=== PATIENT | female | born 1940 | race Caucasian/White ===

== ENCOUNTER 2017-01-03 10:13 | Outpatient (CLI) | payer MEDICARE, OTHER ==
[2017-01-03 10:53] LABS: MEAN CORPUSCULAR HEMOGLOBIN 30.1 pg (28.0-34.0); MEAN CORPUSCULAR VOLUME 93.1 fl (80.0-100.0)
[2017-01-03 11:12] LABS: eGFR (African) 40; eGFR (Non-African) 33
[2017-01-03 11:57] LABS: BASOPHILS % 2 % (0-2); EOSINOPHILS % 3 % (0-7); MONOCYTES % 6 % (0-11); SEGMENTED NEUTROPHILS % 60 % (39-79)
== END 2017-01-03 10:14 ==
LOC: LAB 10:13
PROVIDERS: ATTEND Nurse Practitioner Family
DX: Z90.49 Acquired absence of other specified parts of digestive tract (principal); D64.9 Anemia, unspecified
CPT/HCPCS: 36415; 80053; 85025

== ENCOUNTER 2018-08-25 10:09 | Outpatient (CLI) | payer MEDICARE, OTHER ==
--- NOTE | 2018-08-25 13:53 | Diagnostic Imaging Report ---
JANE GUTIERREZ [facility] [address] [facility] [address] [address] Report Submission Date: Aug 25, 2018 12:30:42 PM SAFETY DEPOSIT BOXES CUSTODIAN Patient Study Name: RASHIDA ANTHONY Date: Aug 25, 2018 10:16:23 AM SAFETY DEPOSIT BOXES CUSTODIAN Modality Type: DX Gender: F Description: L SPINE 4 VIEWS : 38 Institution: [facility] Physician: JANE GUTIERREZ Exam: Lumbar spine. History: Fall 3 days ago. AP, lateral oblique views of the lumbar spine are submitted. 5 functional lumbar vertebra are identified. Diffuse osteopenia is noted. The vertebral body heights are adequately maintained. Mild spondylolisthesis of L4 and L5 is noted. Mild degenerative disc disease at L4-5 level is noted. Spondylolysis bilaterally at L5 level is noted.. Pedicles are intact. Impression: Grade 1 spondylolisthesis of L4 on L5. Spondylolysis at L5 is noted. Degenerative disc disease most marked at L4-5 level. Electronically signed on Aug 25, 2018 12:30:42 PM SAFETY DEPOSIT BOXES CUSTODIAN by: Amador HERNANDEZ
--- NOTE | 2018-08-25 13:53 | Diagnostic Imaging Report ---
JANE GUTIERREZ [facility] [address] [facility].[address] [address] Report Submission Date: Aug 25, 2018 12:47:09 PM CHILD SUPPORT CASE OFFICER Patient Study Name: RASHIDA ANTHONY Date: Aug 25, 2018 10:16:23 AM CHILD SUPPORT CASE OFFICER Modality Type: DX Gender: F Description: KNEE 3 VIEWS : 38 Institution: [facility] Physician: JANE GUTIERREZ Exam: Right knee. History: Fall 3 days ago. AP, lateral and sunrise view the right knee are submitted. Diffuse osteopenia is noted. No acute fracture or dislocation is seen. Chondrocalcinosis in both the lateral medial compartments of the knee joint are noted. No other soft tissue abnormalities are identified. Impression: Diffuse osteoporosis. No acute fracture. 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 Electronically signed on Aug 25, 2018 12:47:09 PM CHILD SUPPORT CASE OFFICER by: Amador HERNANDEZ
== END 2018-08-25 10:10 ==
LOC: RAD 10:09
PROVIDERS: ATTEND Nurse Practitioner Family
DX: M43.16 Spondylolisthesis, lumbar region (principal); M51.36 Other intervertebral disc degeneration, lumbar region; M85.861 Other specified disorders of bone density and structure, right lower leg; S89.91XA Unspecified injury of right lower leg, initial encounter; S39.92XA Unspecified injury of lower back, initial encounter
CPT/HCPCS: 72110; 73562

== ENCOUNTER 2019-05-16 09:43 | Emergency (ER) | payer MEDICARE, OTHER ==
--- NOTE | 2019-05-16 10:03 | Diagnostic Imaging Report ---
PATIENT MR#: [id number] PATIENT PATIENT NAME: RASHIDA ANTHONY DATE OF : 1940 REFERRING PHYSICIAN: GIOVANNY LOPEZ EXAM DATE: 05/16/2019 ACCESSION NUMBER: [id number] EXAM DESCRIPTION: CT BRAIN W/O CONTRAST HISTORY: 78-year-old female with aphasia. COMPARISON: None available. TECHNIQUE: Noncontrast axial CT images of the head were performed. Sagittal and coronal reformatted images were obtained. FINDINGS: There is mild global brain atrophy. There is mild to moderate decreased attenuation in the periventricular white matter. No intracranial hemorrhage, mass, midline shift, hydrocephalus, or evidence of acute l arge vessel infarct. The mastoid air cells, middle ear spaces, and partially visualized paranasal sinuses are cl ear. IMPRESSION: Global brain atrophy and chronic ischemic changes, without evidence of acute infarct or other acute i ntracranial process. These findings were discussed with Dr. Lopez in the emergency room on 05/16/2019 at 09:57 a.m. RESIDENTIAL ROOFER . Read by: Dr. Delfino Driver Transcribed by: Transcribed Date: Electronically signed by: Dr. Delfino Driver Date signed: 05/16/2019 10:02:17 AM
[2019-05-16 10:07] LABS: BASOPHILS % 0.3 % (0.0-1.5); NEUTROPHILS # 3.7 # k/uL (1.4-7.7)
[2019-05-16] MEDS ORDERED: diphenhydrAMINE HCL 50 MG/ML VIAL ONE (10:09)
[2019-05-16] MEDS ORDERED: methylPREDNISolone SOD SUCC 125 MG/2 ML VIAL ONE (10:09)
[2019-05-16] MEDS ORDERED: LABETALOL HCL 20 MG/4 ML SYRINGE IV ONE ×2 (10:10→10:12)
[2019-05-16] MEDS ORDERED: diphenhydrAMINE HCL 50 MG/ML VIAL IVP ONE (10:12)
[2019-05-16] MEDS ORDERED: methylPREDNISolone SOD SUCC 125 MG/2 ML VIAL IVP ONE (10:12)
[2019-05-16] MEDS ORDERED: 0.9 % SODIUM CHLORIDE 1,000 ML IV ONE (10:15)
[2019-05-16 10:17] LABS: eGFR (Non-African) > 60
[2019-05-16 10:31] VITALS: BP 202/100
--- NOTE | 2019-05-16 10:38 | ED Physician Documentation ---
Neuro Symptoms - HISTORIAN Historian: patient - HPI Stated Complaint: CVA symptoms Chief Complaint: Neurological Deficits Onset: other (99) Timing: gradual onset Last known Well Date: 05/16/19 Last Known Well Time: 01:00 Last known Well Code/Unknown Code: Known Further Comments: yes (78 year old female patient brought in by her daughter with reports of difficulty speaking. Daughter reports her mother "text" her at 0853, then called her at 0900 asking her to come over. Daughter reports she did not notice any difficulty with speech on the phone call. Daughter arrived at patient house just after 0900; (unsure of time) states she noticed difficulty speaking and brought patient to the ER.) - CHARACTERS OF DEFICIT New Weakness: other (aphasia) Altered Sensation: other (aphasia) Vision Problems: No Impaired Speech/ Swallowing: Yes (aphasia) Decreased Ability: none Cognition is Usually: alert, oriented x3 Gait is Usually: walks w/o assistance Associated Symptoms: none - ROS MENTAL STATUS: denies: problems with vision, sore throat CVS/Resp Upper Extremity Problem: none GI/ DYSPNEA: none MS/SKIN/LYMPH: none Neuro/Psych: none - PAST HX Past History: depression Other History: hyperlipidemia, hypertension, other (hypothyroidism; depression) Allergies/Adverse Reactions: Allergies Allergy/AdvReac Type Severity Reaction Status Date / Time penicillin G Allergy Verified 05/16/19 10:08 Flu Vaccine Allergy Uncoded 05/16/19 10:08 IV contrast Allergy Uncoded 05/16/19 10:08 Home Medications: Ambulatory Orders Medication Instructions Recorded Amlodipine Besylate [Norvasc] 2.5 mg PO DAILY u2 07/28/18 Atenolol 25 mg PO DAILY u2 07/28/18 Levothyroxine Sodium 75 mcg PO DAILY u2 07/28/18 Lisinopril 20Mg [Prinivil] 20 mg PO DAILY u2 07/28/18 Lovastatin 40 mg PO DAILY u2 07/28/18 - FAMILY HX Family History: denies: none - SOCIAL HX Smoking History: non-smoker - VITAL SIGNS Vital Signs: Vital Signs Temp Pulse Resp BP Pulse Ox 97.8 F 70 19 202/100 98 05/16/19 09:44 05/16/19 09:44 05/16/19 09:44 05/16/19 09:44 05/16/19 09:44 - REVIEWED ASSESSMENTS Nursing Assessment Reviewed: Yes Vitals Reviewed: Yes Progress - Progress Progress: NIHSS 2-3; on speech. Patient is able to understand instructions; difficulty articulating pictures and reading sentences. 1000 - allergies discussed; Patient states in the 1970s she had a rash to IV contrast. Patient premedicated with solumedrol 125mg and benadryl 50mg in preparation for CTA at [facility]. Labetaolol 20mg IVP for hypertension Patient accepted to [facility] - Code Stroke, level [address] Turner; to ER. - EKG/XRAY/CT EKG: rhythm (SR, rate 67) ED Results Lab/Radiology - Lab Results Lab Results: Lab Results 05/16/19 05/16/19 05/16/19 09:44 09:44 09:44 WBC 6.50 K/ul K/ul (4.00-12.00) RBC 4.09 M/ul M/ul (3.90-5.20) Hgb 12.8 g/dL g/dL (11.5-16.0) Hct 37.9 % % (34.5-46.5) MCV 93.0 fl fl (80.0-100.0) MCH 31.2 pg pg (28.0-34.0) MCHC 33.7 g/dL g/dL (30.0-36.0) RDW 11.3 % % (11.3-14.3) Plt Count 336 K/mm3 K/mm3 (130-400) Neut % (Auto) 56.3 % % (39.0-79.0) Lymph % (Auto) 34.4 % % (16.0-50.0) Mingo % (Auto) 7.0 % % (0.0-11.0) Eos % (Auto) 2.0 % % (0.0-6.8) Baso % (Auto) 0.3 % % (0.0-1.5) Neut # (Auto) 3.7 # k/uL # k/uL (1.4-7.7) Lymph # (Auto) 2.2 # k/uL # k/uL (0.6-4.0) Mingo # (Auto) 0.5 # k/uL # k/uL (0.0-0.9) Eos # (Auto) 0.1 # k/uL # k/uL (0.0-0.6) Baso # (Auto) 0.0 # k/uL # k/uL (0.0-0.5) PT 9.3 Seconds Seconds (8.8-11.9) INR 0.89 (0.80-1.10) APTT 24.7 Seconds Seconds (24.7-37.8) Sodium 141 mmol/L mmol/L (137-145) Potassium 4.7 mmol/L mmol/L (3.5-5.1) Chloride 109 mmol/L H mmol/L (98-107) Carbon Dioxide 23 mmol/L mmol/L (22-30) Anion Gap 13.7 BUN 18 mg/dL H mg/dL (7-17) Creatinine 0.98 mg/dL mg/dL (0.52-1.04) Est GFR ( Amer) > 60 (60 - ) Est GFR (Non-Af Amer) > 60 (60 - ) Glucose 95 mg/dL mg/dL (74-106) Calcium 10.6 mg/dL H mg/dL (8.4-10.2) Total Bilirubin 0.5 mg/dL mg/dL (0.2-1.3) AST 44 U/L U/L (15-46) ALT 25 U/L U/L (0-35) Alkaline Phosphatase 121 U/L U/L (38-126) Total Protein 8.0 g/dL g/dL (6.3-8.2) Albumin 4.3 g/dL g/dL (3.5-5.0) - Orders Orders: ED Orders Category Date Time Status CT BRAIN W/O CONTRAST Stat Exams 05/16/19 Completed CBC/PLATELET/DIFF Stat Lab 05/16/19 09:44 Completed CMP Stat Lab 05/16/19 09:44 Completed PT-INR Stat Lab 05/16/19 09:44 Completed PTT Stat Lab 05/16/19 09:44 Completed 0.9 % Sodium Chloride [Normal Saline] 1,000 ml Med 05/16/19 10:15 Ordered IV NOW Labetalol HCl [Trandate Inj] Med 05/16/19 10:10 Discontinued 20 mg IV .STK-MED ONE Labetalol HCl [Trandate Inj] Med 05/16/19 10:12 Discontinued 20 mg IV NOW ONE diphenhydrAMINE HCL [Benadryl] Med 05/16/19 10:09 Discontinued 50 mg .ROUTE .STK-MED ONE diphenhydrAMINE HCL [Benadryl] Med 05/16/19 10:12 Discontinued 50 mg IVP NOW ONE methylPREDNISolone SOD SUCC [SOLU-Medrol] Med 05/16/19 10:09 Discontinued 125 mg .ROUTE .STK-MED ONE methylPREDNISolone SOD SUCC [SOLU-Medrol] Med 05/16/19 10:12 Discontinued 125 mg IVP NOW ONE Neuro Symptoms Physical Exam - Physical Exam General Appearance: mild distress HEENT: no apparent trauma, EOM's intact, PERRL, ENT inspection nml, pharynx nml, airway intact, oral exam nml Neuro/Psych: alert, mood/affect nml, eyes open, expressive Cranial Nerves: nml as tested Cerebellar: nml as tested, nml gait Neck: normal inspection, thyroid normal Respiratory: no resp distress, chest non-tender, breath sounds normal CVS: reg rate & rhythm, heart sounds normal, equal pulses, no murmur, no gallop, PMI nml, no JVD, no friction rub, 24 Skin: no rash, pallor, nml palp., dry Extremities: non-tender, normal range of motion, no evidence of injury, no edema, J, PATHOLOGY MANAGER Discharge Clincal Impression: Expressive aphasia Condition: Critical Disposition: 02 XFER SHT-TRM HOSP Decision to Admit: NO Decision Time: 10:05
== END 2019-05-16 10:22 | disposition short-term general hospital (02) ==
LOC: ED 09:43
DX: R47.01 Aphasia (principal)
CPT/HCPCS: 36415; 70450; 80053; 85025; 85610; 85730; 93005; 96374; 96375; 99283; 99284; J1200; J2930; J7030; 96372; S1016

== ENCOUNTER 2019-06-18 12:58 | Outpatient (CLI) | payer MEDICARE, OTHER ==
--- NOTE | 2019-06-19 16:21 | Diagnostic Imaging Report ---
PATIENT MR#: [id number] PATIENT PATIENT NAME: RASHIDA ANTHONY DATE OF : 1940 REFERRING PHYSICIAN: David Wylie EXAM DATE: 06/18/2019 ACCESSION NUMBER: [id number] EXAM DESCRIPTION: DEXA DUAL ENERGY X-RAY ABSORPTIOMETRY (DXA) A DXA scan was performed on June 18, 2019 using a Chirpify densitometer. IMPRESSION: Based on BMD diagnosis is consistent with osteopenia (based on WHO criteria). Fracture risk is modera te. Treatment is advised. INDICATION: Osteopenia, history of wrist fracture Technical Quality: Diagnostic RESULTS: Lumbar Spine The BMD measured in the L1-L4 region is 1.064 g/cm2 T-score -1.0 Femoral Neck The BMD measured at the left femoral neck is 0.788 g/cm2 T-score -1.8 Total Hip The BMD measured at the right total proximal femur is 0.82 g/cm2 T-score -1.5 Read by: Dr. Edgard Sanchez Transcribed by: Edgard Sanchez Transcribed Date: 06/19/2019 4:20:00 PM Electronically signed by: Dr. Edgard Sanchez Date signed: 06/19/2019 4:20:00 PM
== END 2019-06-18 13:08 ==
LOC: RAD 12:58
PROVIDERS: ATTEND Family Medicine
DX: M85.89 Other specified disorders of bone density and structure, multiple sites (principal)
CPT/HCPCS: 77080